=== PATIENT | female | born 1980 | race Caucasian/White ===

== ENCOUNTER 2019-12-27 20:52 | Emergency (ER) | payer BC ==
--- NOTE | 2019-12-27 21:09 | EDM.PDOC ---
ED HPI GENERAL MEDICAL PROBLEM - General Chief Complaint: Abdominal Pain Stated Complaint: LEFT SIDE PAIN Time Seen by Provider: 12/27/19 21:08 - History of Present Illness INITIAL COMMENTS - FREE TEXT/NARRATIVE: 39-year-old female presents the emergency room with abdominal pain. This pain started this morning comes and goes started out left lower quadrant occasionally right radiates into her groin and then to her back now it has been pretty constant radiating from her back down into her groin. She has had some nausea but really no vomiting she denies any constipation diarrhea she said no burning or frequency with urination. She denies . Treatments GED TUTOR: Reports: Other (see below) Other Treatments GED TUTOR: motrin Left Abdomen Pain Score (Numeric/FACES): 7 - Related Data Allergies Allergy/AdvReac Type Severity Reaction Status Date / Time No Known Allergies Allergy Verified 12/27/19 21:05 Home Meds: Home Meds . [No Known Home Meds] 12/27/19 [History] Past Medical History - Past Health History Medical/Surgical History: Denies Medical/Surgical History Social & Family History - Tobacco Use Smoking Status *Q: Never Smoker - Caffeine Use Caffeine Use: Reports: Coffee - Recreational Drug Use Recreational Drug Use: No ED ROS GENERAL - Review of Systems Review Of Systems: See Below Constitutional: Reports: No Symptoms HEENT: Reports: No Symptoms Respiratory: Reports: No Symptoms Cardiovascular: Reports: No Symptoms Endocrine: Reports: No Symptoms GI/Abdominal: Reports: Abdominal Pain, Nausea, Vomiting. Denies: Constipation, Diarrhea : Reports: Flank Pain, Other (She denies any possibility of as she is not sexually active). Denies: Discharge, Dysuria, Frequency, Incontinence Musculoskeletal: Reports: No Symptoms Skin: Reports: No Symptoms Neurological: Reports: No Symptoms ED EXAM, GI/ABD - Physical Exam Exam: See Below Exam Limited By: No Limitations General Appearance: Alert, Other (Having a hard time getting comfortable) Head: Atraumatic, Normocephalic Neck: Normal Inspection, Supple, Non-Tender, Full Range of Motion Respiratory/Chest: No Respiratory Distress, Lungs Clear, Normal Breath Sounds Cardiovascular: Regular Rate, Rhythm, No Edema, No Murmur GI/Abdominal Exam: Normal Bowel Sounds, Soft, Rebound (Questionable not reproducible at times he can press in on the right side when he let go she has pain shooting over to the left side.), Other (Vague right-sided discomfort). No : Guarding, Rigid Course - Vital Signs Last Recorded V/S: Last Vital Signs Temp 37.2 C 12/27/19 21:04 Pulse 81 12/27/19 21:04 Resp 20 12/27/19 21:04 BP 126/87 12/27/19 21:04 Pulse Ox 97 12/27/19 21:04 - Orders/Labs/Meds Orders: Active Orders 24 hr Category Date Time Status Abdomen Pelvis w Cont [CT] Stat Exams 12/27/19 22:22 Taken Lactated Ringers [Ringers, Lactated] 1,000 ml Med 12/27/19 21:45 Active IV ASDIRECTED Sodium Chloride 0.9% [Saline Flush] Med 12/27/19 22:23 Active 10 ml FLUSH ONETIME PRN Medication Orders Lactated Ringer's (Ringers, Lactated) 1,000 mls @ 150 mls/hr IV ASDIRECTED STEVE Last Admin: 12/27/19 21:51 Dose: 150 mls/hr Sodium Chloride (Saline Flush) 10 ml FLUSH ONETIME PRN PRN Reason: KEEP VEIN OPEN Last Admin: 12/27/19 22:35 Dose: 10 ml Labs: Laboratory Tests 12/27/19 12/27/19 12/27/19 Range/Units 21:45 21:45 21:50 WBC 13.09 H (3.98-10.04) K/mm3 RBC 4.63 (3.98-5.22) M/mm3 Hgb 13.8 (11.2-15.7) gm/dl Hct 41.2 (34.1-44.9) % MCV 89.0 (79.4-94.8) fl MCH 29.8 (25.6-32.2) pg MCHC 33.5 (32.2-35.5) g/dl RDW Std Deviation 43.5 (36.4-46.3) fL Plt Count 351 (182-369) K/mm3 MPV 10.7 (9.4-12.3) fl Neut % (Auto) 87.4 H (34.0-71.1) % Lymph % (Auto) 8.7 L (19.3-51.7) % [place] % (Auto) 3.4 L (4.7-12.5) % Eos % (Auto) 0.2 L (0.7-5.8) Baso % (Auto) 0.2 (0.1-1.2) % Neut # (Auto) 11.46 H (1.56-6.13) K/mm3 Lymph # (Auto) 1.14 L (1.18-3.74) K/mm3 [place] # (Auto) 0.44 H (0.24-0.36) K/mm3 Eos # (Auto) 0.02 L (0.04-0.36) K/mm3 Baso # (Auto) 0.02 (0.01-0.08) K/mm3 Manual Slide Review Abnormal smear Sodium 136 (136-145) mEq/L Potassium 3.6 (3.5-5.1) mEq/L Chloride 100 (98-107) mEq/L Carbon Dioxide 24 (21-32) mEq/L Anion Gap 15.6 H (5-15) BUN 17 (7-18) mg/dL Creatinine 0.9 (0.55-1.02) mg/dL Est Cr Clr Drug Dosing 70.11 mL/min Estimated GFR (MDRD) > 60 (>60) mL/min BUN/Creatinine Ratio 18.9 H (14-18) Glucose 116 H (74-106) mg/dL Calcium 9.2 (8.5-10.1) mg/dL Total Bilirubin 0.6 (0.2-1.0) mg/dL AST 30 (15-37) U/L ALT 34 (14-59) U/L Alkaline Phosphatase 62 (46-116) U/L Total Protein 7.6 (6.4-8.2) g/dl Albumin 4.3 (3.4-5.0) g/dl Globulin 3.3 gm/dL Albumin/Globulin Ratio 1.3 (1-2) Urine Color Yellow (Yellow) Urine Appearance Clear (Clear) Urine pH 8.0 (5.0-8.0) Ur Specific [place] 1.025 (1.005-1.030) Urine Protein Negative (Negative) Urine Glucose (UA) Negative (Negative) Urine Ketones Negative (Negative) Urine Occult Blood Negative (Negative) Urine Nitrite Negative (Negative) Urine Bilirubin Negative (Negative) Urine Urobilinogen 0.2 (0.2-1.0) Ur Leukocyte Esterase Negative (Negative) Urine HCG, Qual (NEGATIVE) 12/27/19 Range/Units 21:50 WBC (3.98-10.04) K/mm3 RBC (3.98-5.22) M/mm3 Hgb (11.2-15.7) gm/dl Hct (34.1-44.9) % MCV (79.4-94.8) fl MCH (25.6-32.2) pg MCHC (32.2-35.5) g/dl RDW Std Deviation (36.4-46.3) fL Plt Count (182-369) K/mm3 MPV (9.4-12.3) fl Neut % (Auto) (34.0-71.1) % Lymph % (Auto) (19.3-51.7) % [place] % (Auto) (4.7-12.5) % Eos % (Auto) (0.7-5.8) Baso % (Auto) (0.1-1.2) % Neut # (Auto) (1.56-6.13) K/mm3 Lymph # (Auto) (1.18-3.74) K/mm3 [place] # (Auto) (0.24-0.36) K/mm3 Eos # (Auto) (0.04-0.36) K/mm3 Baso # (Auto) (0.01-0.08) K/mm3 Manual Slide Review Sodium (136-145) mEq/L Potassium (3.5-5.1) mEq/L Chloride (98-107) mEq/L Carbon Dioxide (21-32) mEq/L Anion Gap (5-15) BUN (7-18) mg/dL Creatinine (0.55-1.02) mg/dL Est Cr Clr Drug Dosing mL/min Estimated GFR (MDRD) (>60) mL/min BUN/Creatinine Ratio (14-18) Glucose (74-106) mg/dL Calcium (8.5-10.1) mg/dL Total Bilirubin (0.2-1.0) mg/dL AST (15-37) U/L ALT (14-59) U/L Alkaline Phosphatase (46-116) U/L Total Protein (6.4-8.2) g/dl Albumin (3.4-5.0) g/dl Globulin gm/dL Albumin/Globulin Ratio (1-2) Urine Color (Yellow) Urine Appearance (Clear) Urine pH (5.0-8.0) Ur Specific [place] (1.005-1.030) Urine Protein (Negative) Urine Glucose (UA) (Negative) Urine Ketones (Negative) Urine Occult Blood (Negative) Urine Nitrite (Negative) Urine Bilirubin (Negative) Urine Urobilinogen (0.2-1.0) Ur Leukocyte Esterase (Negative) Urine HCG, Qual Negative (NEGATIVE) Meds: Medications Generic Name Dose Route Start Last Admin Trade Name Freq PRN Reason Stop Dose Admin Lactated Ringer's 1,000 mls @ 150 mls/hr 12/27/19 21:45 12/27/19 21:51 Ringers, Lactated IV 150 mls/hr ASDIRECTED STEVE Administration Sodium Chloride 10 ml 12/27/19 22:23 12/27/19 22:35 Saline Flush FLUSH 10 ml ONETIME PRN Administration KEEP VEIN OPEN Discontinued Medications Generic Name Dose Route Start Last Admin Trade Name Freq PRN Reason Stop Dose Admin Fentanyl 50 mcg 12/27/19 21:36 12/27/19 21:51 Sublimaze IVPUSH 12/27/19 21:37 50 mcg ONETIME ONE Administration Fentanyl 50 mcg 12/27/19 22:55 12/27/19 23:00 Sublimaze IVPUSH 12/27/19 22:56 50 mcg ONETIME STA Administration Iopamidol 100 ml 12/27/19 22:23 12/27/19 22:35 Isovue-300 (61%) IVPUSH 12/27/19 22:24 100 ml ONETIME ONE Administration Ondansetron HCl 4 mg 12/27/19 21:36 12/27/19 21:52 Zofran IVPUSH 12/27/19 21:37 4 mg ONETIME ONE Administration - Re-Assessments/Exams Free Text/Narrative Re-Assessment/Exam: 12/27/19 23:26 Patient's work-up is concerning for a kidney stone initially however it was not perfect. For worked her up laboratory evaluation is for the most part unrevealing white count slightly elevated. There was a concerning nature of her abdominal discomfort I went ahead and did a CT with IV contrast. There is no evidence of any kidney stone however she does have a pelvic mass on the left side posterior to the uterus. Radiology believes this to represent an ovarian dermoid. I discussed my findings with the patient and I am not certain this is causing her symptoms. I have recommended she get an outpatient ultrasound and I will call Dr. Carranza the on-call epic anesthesia analyst first thing in the morning so he can expect follow-up in the clinic. Departure - Departure Time of Disposition: 23:31 Disposition: Home, Self-Care 01 Clinical Impression: Abdominal pain, Pelvic mass - Discharge Information Referrals: PCP,None [Primary Care Provider] - Blaise Carranza MD [Physician] - Forms: ED Department Discharge, ED Return to Work/School Form Additional Instructions: Return to the emergency room with any questions problems or worsening symptoms. Follow-up with Dr. Carranza as soon as you can early this next week. Use the pain medication as we discussed take 1 or 2 every 6 hours as needed for pain. However, remember you must not drive or return to work within 12 hours of using this medication. If needing this medication on a regular basis take something like Colace 100 mg twice daily, this is a stool softener. I did put in an order for a pelvic ultrasound you should be contacted shortly to get this scheduled. Sepsis Event Note (ED) - Evaluation Sepsis Screening Result: No Definite Risk - Focused Exam Vital Signs: Vital Signs Temp Pulse Resp BP Pulse Ox 12/27/19 21:04 37.2 C 81 20 126/87 97 - My Orders Last 24 Hours: My Active Orders 12/27/19 21:45 Lactated Ringers [Ringers, Lactated] 1,000 ml IV ASDIRECTED 12/27/19 22:22 Abdomen Pelvis w Cont [CT] Stat 12/27/19 22:23 Sodium Chloride 0.9% [Saline Flush] 10 ml FLUSH ONETIME PRN - Assessment/Plan Last 24 Hours: My Active Orders 12/27/19 21:45 Lactated Ringers [Ringers, Lactated] 1,000 ml IV ASDIRECTED 12/27/19 22:22 Abdomen Pelvis w Cont [CT] Stat 12/27/19 22:23 Sodium Chloride 0.9% [Saline Flush] 10 ml FLUSH ONETIME PRN
[2019-12-27] MEDS ORDERED: fentaNYL 100 MCG/2 ML SDV IVPUSH ONE (21:36)
[2019-12-27] MEDS ORDERED: Ondansetron 4 MG/2 ML SDV IVPUSH ONE (21:36)
[2019-12-27] MEDS ORDERED: Lactated Ringers 1,000 ML IV SCH (21:45)
[2019-12-27] MEDS ORDERED: Iopamidol 612 MG/ML 100 ML Bottle IVPUSH ONE (22:23)
[2019-12-27] MEDS ORDERED: Sodium Chloride 0.9% 10 ML Syringe FLUSH PRN (22:23)
[2019-12-27] MEDS ORDERED: fentaNYL 100 MCG/2 ML SDV IVPUSH STA (22:55)
--- NOTE | 2019-12-28 06:19 | CT ---
CT abdomen and pelvis Technique: Multiple axial sections were obtained from above the dome of the diaphragm inferiorly through the pubic symphysis. Intravenous contrast was utilized. No oral contrast has been given. Comparison: No prior abdominal imaging is available. Findings: Visualized lung bases show nothing acute. Liver shows no focal parenchymal abnormality. Spleen appears within normal limits. Adrenal glands show no nodule. Pancreas appears within normal limits. Kidneys show symmetric contrast enhancement. No hydronephrosis or mass is seen. No discrete calcification are seen along the course of the ureters. Aorta shows no aneurysm. Gallbladder contains no gallstones. Stomach is slightly distended with food material. No retroperitoneal adenopathy or mesenteric abnormalities are seen. Fatty containing abnormality is seen posterior to the uterus measuring 5.5 cm x 4.8 cm. Findings most likely due to a left dermoid cyst. No additional pelvic abnormality is seen. No free fluid or inflammatory change is seen. Delayed images shows contrast within the bladder. Appendix felt to be visualized and is normal in size. Bone window settings were reviewed. No acute osseous finding is appreciated. Impression: 1. Fatty containing pelvic mass with measurements as noted above. I believe the findings are most likely due to left ovarian dermoid cyst. 2. No additional abnormality is seen on CT study of the abdomen and pelvis. Diagnostic code #3 This report was dictated in MDT I agree with preliminary report from [facility], finalized on 12/27/19, 11:56 PM Daylight Time
== END 2019-12-28 | disposition home or self-care (01) ==
LOC: JD.ED 20:52
DX: R19.00 Intra-abdominal and pelvic swelling, mass and lump, unspecified site (principal); R10.32 Left lower quadrant pain
CPT/HCPCS: 36415; 74177; 80053; 81003; 81025; 85025; 96361; 96374; 96375; 96376; 99284; J2405; J3010; J7120; Q9967; 99283

== ENCOUNTER 2020-01-26 07:57 | Day surgery (SDC) | payer BC ==
[~2020-01-26 07:57] MED LIST: Lactated Ringers 1,000 ML IV SCH; Lidocaine 1%/Sod Bicarbonate in NS 8.4% 1 ML Syringe IDERM PRN; Sodium Chloride 0.9% 10 ML Syringe FLUSH PRN
[2020-01-26] MEDS ORDERED: Scopolamine 1.5 MG Transdermal Patch TOP ONE (08:11)
[2020-01-26] MEDS ORDERED: Bupivacaine 0.5% 30 ML SDV ONE (08:29)
--- NOTE | 2020-01-26 08:36 | PCM.PREANE ---
Preanesthetic Assessment - Procedure Proposed Procedure: laparoscopy - Anesthesia/Transfusion/Family Hx Anesthesia History: Prior Anesthesia Without Reaction Family History of Anesthesia Reaction: No Transfusion History: No Prior Transfusion(s) - Review of Systems General: No Symptoms Pulmonary: No Symptoms Cardiovascular: No Symptoms Gastrointestinal: No Symptoms Neurological: No Symptoms Other: Reports: Easy Bruising - Physical Assessment NPO Status Date: 01/25/20 NPO Status Time: 23:00 Vital Signs: Last Vital Signs Temp 36.6 C 01/26/20 08:05 Pulse 83 01/26/20 08:05 Resp 16 01/26/20 08:05 BP 120/71 01/26/20 08:05 Pulse Ox 100 01/26/20 08:05 Height: 1.6 m Weight: 67.585 kg ASA Class: 1 Mental Status: Alert & Oriented x3 Airway Class: Mallampati = 1 Dentition: Reports: Normal Dentition Thyro-Mental Finger Breadths: 3 Mouth Opening Finger Breadths: 2 ROM/Head Extension: Full Lungs: Clear to Auscultation, Normal Respiratory Effort Cardiovascular: Regular Rate, Regular Rhythm - Lab Values: Laboratory Last Values Urine Color Yellow (Yellow) 01/26/20 08:00 Urine Appearance Clear (Clear) 01/26/20 08:00 Urine pH 6.5 (5.0-8.0) 01/26/20 08:00 Ur Specific [place] 1.015 (1.005-1.030) 01/26/20 08:00 Urine Protein Negative (Negative) 01/26/20 08:00 Urine Glucose (UA) Negative (Negative) 01/26/20 08:00 Urine Ketones Negative (Negative) 01/26/20 08:00 Urine Occult Blood 3+ (Negative) H 01/26/20 08:00 Urine Nitrite Negative (Negative) 01/26/20 08:00 Urine Bilirubin Negative (Negative) 01/26/20 08:00 Urine Urobilinogen 0.2 (0.2-1.0) 01/26/20 08:00 Ur Leukocyte Esterase Negative (Negative) 01/26/20 08:00 Urine HCG, Qual Negative (NEGATIVE) 01/26/20 08:00 - Allergies Allergies/Adverse Reactions: Allergies Allergy/AdvReac Type Severity Reaction Status Date / Time No Known Allergies Allergy Verified 12/27/19 21:05 - Anesthesia Plan Pre-Op Medication Ordered: None - Acknowledgements Anesthesia Type Planned: General Anesthesia Pt an Appropriate Candidate for the Planned Anesthesia: Yes Alternatives and Risks of Anesthesia Discussed w Pt/Guardian: Yes Pt/Guardian Understands and Agrees with Anesthesia Plan: Yes PreAnesthesia Questionnaire - Past Health History Medical/Surgical History: Denies Medical/Surgical History - SUBSTANCE USE Smoking Status *Q: Never Smoker Tobacco Use Within Last Twelve Months: No Second Hand Smoke Exposure: No Days Per Week of Alcohol Use: 1 Number of Drinks Per Day: 0 Total Drinks Per Week: 0 Recreational Drug Use History: No - HOME MEDS Home Medications: Home Meds . [No Known Home Meds] 12/27/19 [History] - CURRENT (IN HOUSE) MEDS Current Meds: Current Medications Lactated Ringer's (Ringers, Lactated) 1,000 mls @ 125 mls/hr IV ASDIRECTED STEVE Stop: 01/26/20 23:00 Last Admin: 01/26/20 08:17 Dose: 125 mls/hr Documented by: Lidocaine/Sodium Bicarbonate (Buffered Lidocaine 1% In Ns 8.4%) 0.25 ml IDERM ONETIME PRN PRN Reason: Prior to IV Start Stop: 01/26/20 18:00 Last Admin: 01/26/20 08:17 Dose: 0.25 ml Documented by: Sodium Chloride (Saline Flush) 10 ml FLUSH ASDIRECTED PRN PRN Reason: Keep Vein Open Stop: 01/26/20 18:00 Discontinued Medications Scopolamine (Transderm-Scop) 1.5 mg TOP ONETIME ONE Stop: 01/26/20 08:12 Last Admin: 01/26/20 08:15 Dose: 1.5 mg Documented by:
[2020-01-26] MEDS ORDERED: Propofol 200 MG/20 ML SDV ONE (08:37)
[2020-01-26] MEDS ORDERED: ceFAZolin 1 GM Vial ONE (08:37)
[2020-01-26] MEDS ORDERED: Ondansetron 4 MG/2 ML SDV ONE (08:37)
[2020-01-26] MEDS ORDERED: Lactated Ringers 1,000 ML ONE (08:37)
[2020-01-26] MEDS ORDERED: Rocuronium 50 MG/5 ML Vial ONE (08:37)
[2020-01-26] MEDS ORDERED: Lidocaine 1% 4 ML ONE (08:37)
[2020-01-26] MEDS ORDERED: Midazolam 1 MG/ML 2 ML SDV ONE (08:38)
[2020-01-26] MEDS ORDERED: fentaNYL 250 MCG/5 ML SDV ONE (08:38)
[2020-01-26] MEDS ORDERED: Ketorolac 15 MG/ML SDV ONE (08:39)
[2020-01-26] MEDS ORDERED: Dexamethasone 4 MG/ML 5 ML MDV ONE (08:39)
[2020-01-26] MEDS ORDERED: HYDROmorphone 0.5 MG/0.5 ML Syringe IVPUSH PRN (10:20)
[2020-01-26] MEDS ORDERED: Ondansetron 4 MG/2 ML SDV IVPUSH PRN (10:20)
[2020-01-26] MEDS ORDERED: fentaNYL 100 MCG/2 ML SDV IVPUSH PRN (10:20)
--- NOTE | 2020-01-26 11:13 | PCM.POSTAN ---
POST ANESTHESIA ASSESSMENT - MENTAL STATUS Mental Status: Alert, Oriented - VITAL SIGNS Vital Signs: Last Vital Signs Temp 36.6 C 01/26/20 08:05 Pulse 83 01/26/20 08:05 Resp 16 01/26/20 08:05 BP 120/71 01/26/20 08:05 Pulse Ox 100 01/26/20 08:05 1104 105/67 62 10 100% 98.1F - RESPIRATORY Respiratory Status: Respiratory Rate WNL, Airway Patent, O2 Saturation Stable - CARDIOVASCULAR CV Status: Pulse Rate WNL, Blood Pressure Stable - GASTROINTESTINAL GI Status: No Symptoms - PAIN Pain Score: 0 - POST OP HYDRATION Hydration Status: Adequate & Stable
[2020-01-26] MEDS ORDERED: Acetaminophen/oxyCODONE 325-5 MG Tab PO SCH (12:15)
--- NOTE | 2020-01-26 12:16 | PCM.OPNOTE ---
- General Post-Op/Procedure Note Date of Surgery/Procedure: 01/26/20 Operative Procedure(s): Laparoscopy with left oophorectomy and partial left salpingectomy Findings: Evaluation of the pelvis and abdomen shows a noninflamed appearing appendix, liver edges right and left lobe are noninflamed. Gallbladder appears distended but otherwise noninflamed. Anterior cul-de-sac was entirely within normal limits as is the right fallopian tube in the uterus. The right ovary appears to be mildly enlarged to approximate 3 x 4 cm with history of simple cyst. Left ovary is incorporated into the posterior cul-de-sac, appears to measure 5-6 cm x 8 cm is somewhat bluish discolored and irregular in appearance. There appears to be torsion of the ovarian ligament/infundibulopelvic ligament which is partial in nature. This involves the distal aspect of the left fallopian tube which appears to be indurated and somewhat necrotic. Pre Op Diagnosis: 1. Left ovarian dermoid Post-Op Diagnosis: Same with partial torsion of the infundibulopelvic ligament and incorporation of the distal left fallopian tube into the torsed complex. Anesthesia Technique: General ET Tube, Local Other Anesthesia Type: Marcaine 0.5%approximately 15 mL total Primary Surgeon: Blaise Carranza Secondary Surgeon: Rickie High Anesthesia Provider: Lakshmi Krishna Hat Maker: Jeremy Villareal Reason Hat Maker Was Necessary: Retraction, assistance, patient safety, quality of care. Pathology: Left ovary with portion of left fallopian tube attached Fluid Replacement, Intraop: 2,000 Output, Urine Amount: 600 EBL in mLs: 20 Drain/Tube Comments:: Indwelling bladder catheter during surgery only. Complications: None Condition: Good Free Text/Narrative:: Intake & Output 01/25/20 01/26/20 01/26/20 22:59 06:59 14:59 Intake Total 150 Balance 150 Surgery duration: 46 minutes Procedure: Fozia was taken to the operating room and placed in supine position on the operating table. Appropriately signed consent was documented and timeout was performed. Patient underwent general endotracheal anesthesia. After adequate anesthesia patient was prepped and draped in usual fashion. Valdivia catheter was placed. Laparoscopy was performed. An infraumbilical incision was made after infiltration with Marcaine 0.5% approximately 3-5 mL. Verres needle was placed and pneumoperitoneum was established using approximately 3.8 L of CO2. A 5 mm laparoscopic sleeve and trocar were then placed and scope was placed into the abdomen. A suprapubic 12 mm port site was then established using lidocaine local and was done under direct visualization. A right lower quadrant 5 mm port was also established in the same fashion. Anatomy was identified and documented as described above. Attention was turned towards the left adnexa. The enlarged left ovary was found to be mildly adherent to the posterior broad ligament on the left side. It appeared that the distal third of the fallopian tube was torsed and attached to the ovary with adhesions. Some omentum was attached to the ovary and to the fallopian tube complex. These adhesions were taken down. The left ovary was then bluntly dissected backward and away from the broad ligament. The infundibulopelvic ligament and a portion of the ovarian ligament were then developed using the Enseal vessel closure system. The entire ovary and the distal portion of fallopian tube as 1 complex was then freed up. It was placed into an Endo Catch bag and then brought forth through the suprapubic site. That site was enlarged to just large enough to allow the Endo Catch bag and the intact cyst to be removed. At this time the fascial layer of the suprapubic site was closed with a running suture of #1 PDS. 3 subcutaneous sutures of 0 Monocryl were placed for reapproximation and the skin was closed with 4-0 Monocryl suture in a running fashion. It was further dressed with Prineo however this mesh was applied at the end of the case before discharge from the operating room. Pneumoperitoneum was reestablished and scope was placed. The area of surgical excision was evaluated and found to be hemostatically intact.. Normal as previously described. At this time the right lower quadrant port site was discontinued and after reversal pneumoperitoneum the umbilical port site was discontinued. Both these incisions were closed with single interrupted suture of 4-0 Monocryl and further approximated with Dermabond. The patient was awakened from general endotracheal anesthesia. It should be noted the Valdivia catheter was removed patient was awakened. Patient 5 procedure well left the operating room in good condition.
--- NOTE | 2020-01-26 13:26 | PCM48HPAN ---
Post Anesthesia Note - EVALUATION WITHIN 48HRS OF ANESTHETIC Vital Signs in Normal Range: Yes Patient Participated in Evaluation: Yes Respiratory Function Stable: Yes Airway Patent: Yes Cardiovascular Function Stable: Yes Hydration Status Stable: Yes Pain Control Satisfactory: Yes Nausea and Vomiting Control Satisfactory: Yes Mental Status Recovered: Yes Vital Signs: Last Vital Signs Temp 36.7 C 01/26/20 12:50 Pulse 72 01/26/20 12:50 Resp 16 01/26/20 12:50 BP 116/68 01/26/20 12:50 Pulse Ox 98 01/26/20 12:50
== END 2020-01-26 14:02 | disposition home or self-care (01) ==
LOC: JD.SDS 07:57
PROVIDERS: ATTEND Obstetrics & Gynecology
DX: D27.1 Benign neoplasm of left ovary (principal); N70.92 Oophoritis, unspecified; N83.8 Other noninflammatory disorders of ovary, fallopian tube and broad ligament
CPT/HCPCS: 36415; 58661; 81003; 81025; 85025; A9270; J0690; J1100; J1885; J2001; J2250; J2405; J2704; J2710; J3010; J3490; J7120; 00840